=== PATIENT | female | born 1990 | race African-American/Black ===

== ENCOUNTER 2021-05-24 19:22 | Emergency (ER) | payer OTHER, SELFPAY ==
[2021-05-24] VITALS (8 sets, daily range): BP systolic 119–150; BP diastolic 80–102; PULSE 59–72; RESP 12–24; TEMP 36.8; O2SAT 100
--- NOTE | ~2021-05-24 | XR_ITS ---
EXAMINATION: XR chest 1V portable DATE: 05/24/2021 20:49 INDICATION: Cough and congestion. TECHNIQUE: A single frontal view of the chest was obtained. COMPARISON: CT abdomen and pelvis 09/14/2014 FINDINGS: There are mild airspace opacities in the lower lung zones. No pleural effusion or pneumotho rax. The heart size is normal. IMPRESSION: 1. Mild airspace opacities in the lower lung zones, consistent with atelectasis versus pneumonia. Reviewed, dictated and finalized at location A.
--- NOTE | 2021-05-24 19:25 | PC.NURSE ---
Patient checking in for congestion, SOL, runny nose, and flu like or covid symptoms . Patient arrives with her young daughter with no mask. Patient informed that her daughter needs to wear a mask and that if she is not being seen then someone needs to come pick her up due to risk of infection. Patient stated well, I don't have anyone to watch her or come pick her up! I came all the way here! This nurse informed her that she is still able to check in and be evaluated but due to the risks she will need to try and have someone come cone picker her daughter. Patient states Well that is ridiculous! I don't have anyone to do that! and walked to the waiting room. [employer] architect aware and notified.
--- NOTE | 2021-05-24 19:50 | PC.NURSE ---
RN called pt. back to a room. RN asked pt. if someone was coming for her daughter since minors are not allowed back. Pt. then begins to yell at RN. I already told that other nurse that i am not calling anyone, you might as well check her in too then because she is not leaving me. Per [employer] it is okay for pt. daughter to remain in the room with pt.
--- NOTE | 2021-05-24 20:37 | ED.GENADULT ---
HPI - General Adult General Chief complaint: Unspecified Stated complaint: Sinus congestion, SOL, covid symptoms Time Seen by Provider: 05/24/21 20:37 Source: patient Mode of arrival: ambulatory Limitations: no limitations History of Present Illness HPI narrative: Patient is a 30-year-old female that presents for evaluation of sinus congestion, headache and loss of taste. Patient states she has had symptoms over the past 3 days. She has been taking DayQuil and NyQuil without much improvement in her symptoms. She denies vision changes, nausea or vomiting. She denies fever or neck pain. She denies chest pain, shortness of breath. She reports mild, nonproductive cough. She denies diarrhea. Patient states her daughter was recently diagnosed with influenza A and was negative for Covid. Patient denies sore throat. Related Data Allergies Allergy/AdvReac Type Severity Reaction Status Date / Time No Known Allergies Allergy Verified 05/24/21 20:58 Review of Systems Review of Systems: CONSTITUTIONAL: Denies fever HEENT: Reports sinus congestion, rhinorrhea, denies sore throat CARDIOVASCULAR: Denies chest pain RESPIRATORY: Reports cough without dyspnea GASTROINTESTINAL: Denies abdominal pain SKIN: Denies rash MUSCULOSKELETAL: Denies back pain NEUROLOGIC: Denies headache [facility] Social History Social History (Updated 05/24/21 @ 21:08 by Oksana Sullivan MD) Smoking status: Never smoker Alcohol intake: never Substance use: never Living arrangements: with family Gender identity (if verbalized by the patient): Female Exam Narrative: GENERAL: Awake, alert, conversant HEAD: Normocephalic, atraumatic. EYES: PERRLA and EOMI. ENT: Rhinorrhea, sinus congestion. Mucous membranes moist. NECK: Supple. CHEST: No respiratory distress, breathing even and non labored, lungs are clear to auscultation bilaterally HEART: Regular rate, sinus rhythm ABDOMEN:Non distended, non tender EXTREMITIES: Normal range of motion. No edema. SKIN: Warm, dry, no rash. NEURO:No focal deficits. Alert and oriented x3 Course Vital Signs Vital signs: Vital Signs Pulse Rate 72 05/24/21 20:02 Respiratory Rate 14 05/24/21 20:02 Blood Pressure 128/87 05/24/21 20:02 Pulse Oximetry 100 05/24/21 20:02 Temperature 36.8 C 05/24/21 20:11 Pulse Rate 59 L 05/24/21 22:01 Respiratory Rate 23 H 05/24/21 22:01 Blood Pressure 150/88 H 05/24/21 22:01 Pulse Oximetry 100 05/24/21 22:01 Medical Decision Making MDM Narrative Medical decision making narrative: Patient presented for evaluation of cough, cold type symptoms, however she does have some features that are concerning for Covid infection. Patient was swabbed for Covid, her influenza swab is negative despite her recent positive contact with this diagnosis. Chest x-ray shows hazy infiltrates, thus the patient will be prescribed antibiotics as we do not know if this is viral pneumonia or bacterial pneumonia at this point. Patient has normal oxygenation without any chest pain, hypoxia, no shortness of breath. She does not qualify for Decadron given she is not hypoxic. She does not have any other comorbidities which would warrant referral for general infusion. No transaminitis. Patient was discharged home with antibiotic, medications to help with supportive care. She was given strict return precautions. Differential Diagnosis Differential Diagnosis: Bacterial pneumonia, viral pneumonia, Covid infection, influenza, upper respiratory infection Vital Signs Vital Signs: Vital Signs Pulse Rate 72 05/24/21 20:02 Respiratory Rate 14 05/24/21 20:02 Blood Pressure 128/87 05/24/21 20:02 Pulse Oximetry 100 05/24/21 20:02 Temperature 36.8 C 05/24/21 20:11 Pulse Rate 59 L 05/24/21 22:01 Respiratory Rate 23 H 05/24/21 22:01 Blood Pressure 150/88 H 05/24/21 22:01 Pulse Oximetry 100 05/24/21 22:01 Lab Data Lab results reviewed: Yes I reviewed the patient's lab results.
[2021-05-24 21:02] LABS: Basophils Absolute Auto 0.1 K/mm3 (0.0-0.1); Basophils Percent Auto 1.1 % (0.2-1.2); Eosinophils Absolute Auto 0.2 K/mm3 (0-0.3); Eosinophils Percent Auto 2.6 % (0-4.4); Hemoglobin 12.5 g/dL (12.0-15.0); Immature Granulocyte Absolute 0.02 K/mm3 (0.00-0.031); Immature Granulocyte Percent A 0.3 % (0-0.5); Lymphocytes Absolute Auto 1.67 K/mm3 (0.9-3.2); Lymphocytes Percent Auto 26.9 % (18.3-44.2); Mean Corpuscular HGB Conc 32.9 g/dl (32-36); Mean Corpuscular Hemoglobin 30.6 pg (26-34); Mean Corpuscular Volume 92.9 fl (80-100); Mean Platelet Volume 9.8 fl (7.4-10.4); Monocytes Absolute Auto 0.7 K/mm3 (0.1-0.6); Monocytes Percent Auto 11.9 % (2.6-8.5); Neutrophils Absolute Auto 3.6 K/mm3 (1.3-6.7); Neutrophils Percent Auto 57.2 % (45.5-73.1); Platelet Count Result 259 k/mm3 (150-375); Red Blood Count 4.09 M/mm3 (4.2-5.4); Red Cell Distribution Width 12.9 % (11.5-14.5); White Blood Count 6.2 K/mm3 (4.5-10.0)
[2021-05-24 21:20] LABS: Alanine Aminotransferase 19 U/L (4-35); Alkaline Phosphatase 50 U/L (38-126); Anion Gap 5 mmol/L (8-16); Aspartate Amino Transferase 31 U/L (14-36); Bilirubin,Total < 0.1 mg/dL (0.2-1.3); Blood Urea Nitrogen 10 mg/dL (7-17); Calcium 9.1 mg/dL (8.4-10.2); Carbon Dioxide 27 mmol/L (22-30); Chloride 102 mmol/L (98-107); Estimated CRCL calculation 92 ml/min; Estimated Glomerular Filt Rate > 60; Glucose 104 mg/dL (65-110); Potassium 3.6 mmol/L (3.4-5.0); Sodium 134 mmol/L (137-145)
[2021-05-26 01:54] LABS: SARS-CoV-2 RNA PCR Negative
== END 2021-05-24 23:00 | disposition home or self-care (01) ==
PROVIDERS: Emergency Provider Emergency Medicine
DX: J18.9 Pneumonia, unspecified organism (principal); Z20.822 Contact with and (suspected) exposure to COVID-19
CPT/HCPCS: 36415; 71045; 80053; 85025; 87804; 99283; C9803; U0003; U0005